=== PATIENT | male | born 1985 | race Asian ===

== ENCOUNTER 2020-06-08 22:13 | Emergency (ER) | payer MEDICAID ==
[~2020-06-08] VITALS: Ht 167.6 cm; Wt 95.3 kg
[2020-06-08 22:35] VITALS: BP_SYST 149
[2020-06-08 23:53] LABS: BILIRUBIN,URINE NEGATIVE (NEGATIVE); BLOOD, URINE 2+ (NEGATIVE); CLARITY/URINE SL CLOUDY (CLEAR); COLOR,URINE YELLOW (YELLOW); GLUCOSE,URINE NEGATIVE (NEGATIVE); KETONES,URINE NEGATIVE (NEGATIVE); LEUKOCYTE ESTERASE ,URINE 3+ (NEGATIVE); NITRITE, URINE NEGATIVE (NEGATIVE); PROTEIN URINE TRACE (NEGATIVE)
[2020-06-08 23:57] LABS: BACTERIA,URINE MODERATE /HPF (None Seen); RBC,URINE 20-50 /HPF (0-3); WBC,URINE >100 /HPF (0-3)
[2020-06-09] MEDS: KETOROLAC TROMETHAMINE 30 MG VIAL IM ONE (00:06)
[2020-06-09] MEDS ORDERED: AZITHROMYCIN 250 MG TABLET ONE (03:12)
[2020-06-09] MEDS: AZITHROMYCIN 250 MG TABLET PO ONE (03:16)
[2020-06-09] MEDS: cefTRIAXone 1 GM in LIDOCAINE 1%, 20 ML MDV 2.1 ML IM ONE (03:19)
[2020-06-09] MEDS: NACL 0.9% 1,000 ML IV ONE (03:30)
== END 2020-06-09 03:30 | disposition left against medical advice (07) ==
LOC: SED 22:13
DX: N50.812 Left testicular pain (principal); N39.0 Urinary tract infection, site not specified; Z20.828 Contact with and (suspected) exposure to other viral communicable diseases
CPT/HCPCS: 36415; 74176; 76376; 76870; 81000; 87086; 87426; 87491; 87591; 96372; 99285; J0696; J1885; J2001; Q0144